=== PATIENT | male | born 1960 | race Hispanic/Latino ===

== ENCOUNTER → 2023-12-30 | Outpatient (CLI) | payer OTHER ==
[~2023-12-30] MED LIST: ESCI-8 PO; FINA5TAB41 PO
[2023-12-30 09:49] LABS: INR 0.95 (0.85-1.15); PROTHROMBIN TIME 11.1 SEC (9.6-11.6)
[2023-12-30 09:50] LABS: PARTIAL THROMBOPLASTIN TIME 29.2 SEC (26.3-35.5)
== END | disposition home or self-care (01) ==
LOC: RAH 08:52
PROVIDERS: ATTEND Physician Assistant Medical
DX: R59.0 Localized enlarged lymph nodes (principal); Z79.01 Long term (current) use of anticoagulants
CPT/HCPCS: 38505; 85610; 85730; 36415; 88305; 88342; 88360; 76942; 88341; A4215